=== PATIENT | male | born 1960 ===

== ENCOUNTER 2023-05-15 15:53 | Emergency (ER) | payer BC ==
[2023-05-15 16:12] VITALS: BP 136/82; PULSE 78; RESP 18; TEMP 98.2; BMI 27.6
[2023-05-15] MEDS ORDERED: ACETAMINOPHEN 1000 MG/100 ML BAG IVPB ONE (16:52)
[2023-05-15] MEDS ORDERED: ACETAMINOPHEN INJECTION 100 ML IVPB ONE (16:59)
[2023-05-15 17:17] LABS: EOS % 4.9 % (0-4.5); HEMATOCRIT 44.6 % (35.4-49); HEMOGLOBIN 15.8 GM/dL (11.7-16.9); LYMPH % 28.6 % (8-40); MCH 33.3 pg (25.7-33.7); MCHC 35.5 g/dl (32.0-35.9); MEAN CELL VOLUME 93.7 fl (80-96); MEAN PLT VOLUME 8.1 fl (7.5-11.1); MONO % 8.7 % (3.8-10.2); NEUT % 56.8 % (42.8-82.8); PLATELET COUNT 252 10^3/uL (134-434); RBC 4.76 M/mm3 (4.00-5.60); RDW 13.3 % (11.9-15.9); WHITE BLOOD COUNT 8.2 K/mm3 (4.0-10.0)
[2023-05-15 17:23] LABS: INR 0.98 (0.83-1.09); PROTHROMBIN TIME (PATIENT) 11.4 SEC (9.7-13.0)
[2023-05-15 17:25] LABS: ACTIVATED PTT 30.3 SECONDS (25.2-36.5)
[2023-05-15 17:31] LABS: PH,URINE 5.5 (5.0-8.0); URINE APPEARANCE CLEAR; URINE BILIRUBIN NEGATIVE (NEGATIVE); URINE COLOR YELLOW; URINE GLUCOSE (UA) NEGATIVE (NEGATIVE); URINE KETONE NEGATIVE (NEGATIVE); URINE LEUK ESTERASE NEGATIVE (NEGATIVE); URINE NITRITE NEGATIVE (NEGATIVE); URINE PROTEIN NEGATIVE (NEGATIVE); URINE UROBILINOGEN 0.2 mg/dL (0.2-1.0)
[2023-05-15 17:36] LABS: POTASSIUM 4.1 mmol/L (3.5-5.1)
[2023-05-15 17:38] LABS: BLOOD UREA NITROGEN 19.6 mg/dL (7-18); CALCIUM 8.7 mg/dL (8.5-10.1)
[2023-05-15 17:39] LABS: ALBUMIN 3.8 g/dl (3.4-5.0)
[2023-05-15 17:43] LABS: BILIRUBIN,TOTAL 0.3 mg/dL (0.2-1); TOT PROT 7.1 g/dl (6.4-8.2)
[2023-05-15] MEDS ORDERED: CEFUROXIME AXETIL 500 MG TABLET PO ONE (20:17)
== END 2023-05-15 20:56 | disposition home or self-care (01) ==
LOC: JER 15:53
PROC: 3E033NZ Introduction of Analgesics, Hypnotics, Sedatives into Peripheral Vein, Percutaneous Approach (ICD-10-PCS; principal; 2023-05-15)
DX: N50.812 Left testicular pain (principal); N50.82 Scrotal pain; L53.9 Erythematous condition, unspecified; G89.18 Other acute postprocedural pain
CPT/HCPCS: 36415; 76870-TC; 80053; 81003; 83605; 85025; 85610; 85730; 87040; 87070; 87077; 87086; 87186; 87205; 93005; 93010; 99285-25